=== PATIENT | female | born 1985 | race Hispanic/Latino ===

== ENCOUNTER 2017-02-07 10:38 | Emergency (ER) | payer OTHER ==
[2017-02-07 12:14] LABS: ALT (SGPT) 14 U/L (8-55); AST (SGOT) 16 U/L (5-34); Albumin 4.1 g/dL (3.5-5.0); Alkaline Phosphatase 94 U/L (40-150); Anion Gap 14 mmol/L (10-20); BUN (Urea Nitrogen) 11 mg/dL (7.0-18.7); Bilirubin, Total 0.2 mg/dL (0.2-1.2); Calc. Creatinine Clearance 0 mL/min (70-130); Calcium 9.3 mg/dL (7.8-10.44); Carbon Dioxide 22 mmol/L (22-29); Chloride 108 mmol/L (98-107); Estimated GFR-MDRD 89; Globulin 3.7 g/dL (2.4-3.5); Glucose 71 mg/dL (70-105); Potassium 4.1 mmol/L (3.5-5.1); Protein, Total 7.8 g/dL (6.0-8.3); Sodium 140 mmol/L (136-145)
[2017-02-07 12:15] LABS: CKMB 0.7 ng/mL (0-6.6); Troponin I Less than 0.010 ng/mL (< 0.028)
--- NOTE | 2017-02-07 12:19 | RAD ---
PORTABLE CHEST ONE VIEW: Date: 02-07-17 Time: 11:52 a.m. History: Nausea, vomiting. FINDINGS: The heart size is normal. No confluent areas of consolidation, pneumothorax, jo-ann pleural edema or p leural effusions are seen. IMPRESSION: No acute process. POS: OFF
[2017-02-07 12:25] LABS: Eosinophils 6 % (0-10); Hemoglobin 15.6 g/dL (12.0-16.0); Lymphocytes 26 % (21-51); MDiff Complete? YES; Mean Corpuscular HGB CONC 34.1 g/dL (32.0-36.0); Mean Corpuscular Hemoglobin 28.6 pg (27.0-31.0); Mean Corpuscular Volume 83.8 fl (81.0-99.0); Mean Platelet Volume 8.5 fL (7.4-10.4); Monocytes 4 % (0-10); Neutrophil 57 % (42-75); PLT Morphology Comment Appears Adequate; Platelet Count 279 thou/uL (130-400); RBC Distribution Width 12.3 % (11.5-14.5); RBC Morphology Normal; Reactive Lymphocytes 7 % (0-10); Red Blood Cell (RBC) Count 5.45 mill/uL (4.20-5.40); White Blood Cell (WBC) Count 8.9 thou/uL (4.8-10.8)
[2017-02-07] MEDS ORDERED: Famotidine/PF 20 mg/2ml Vial ONE (12:43)
[2017-02-07] MEDS ORDERED: Ondansetron HCl/PF 4 MG/2 ML Vial ONE (12:43)
== END 2017-02-07 13:13 | disposition home or self-care (01) ==
LOC: NAV ERS 10:38
DX: R10.9 Unspecified abdominal pain (principal); R11.2 Nausea with vomiting, unspecified; I10 Essential (primary) hypertension; F41.9 Anxiety disorder, unspecified
CPT/HCPCS: 71010; 80053; 82553; 84484; 85025; 93005; 96374; 96375; J2405; S0028

== ENCOUNTER 2017-02-16 00:53 | Emergency (ER) | payer OTHER | END 2017-02-16 01:35 | disposition home or self-care (01) | LOC: NAV ERS 00:53 | DX: F41.9 Anxiety disorder, unspecified (principal); I10 Essential (primary) hypertension | CPT/HCPCS: 93005 ==

== ENCOUNTER 2017-06-03 01:57 | Emergency (ER) | payer OTHER ==
[2017-06-03] MEDS ORDERED: diphenhydrAMINE 50 MG/ML VIAL ONE (02:27)
== END 2017-06-03 02:35 | disposition home or self-care (01) ==
LOC: NAV ERS 01:57
DX: F41.9 Anxiety disorder, unspecified (principal); I10 Essential (primary) hypertension
CPT/HCPCS: 96372; J1200

== ENCOUNTER 2021-09-26 11:08 | Emergency (ER) | payer OTHER ==
[2021-09-26] MEDS ORDERED: Lidocaine 1% 20 ML MDV ONE (11:37)
[2021-09-26] MEDS ORDERED: TETANUS, DIPHTHERIA TOX,ADULT (TDVAX) 0.5 ML VIAL IM ONE (11:37)
[2021-09-26] MEDS ORDERED: Bacitracin 1 PK ONE (12:06)
== END 2021-09-26 12:16 | disposition home or self-care (01) ==
LOC: NAV ERS 11:08
DX: S61.411A Laceration without foreign body of right hand, initial encounter (principal); I10 Essential (primary) hypertension; W25.XXXA Contact with sharp glass, initial encounter
CPT/HCPCS: 12002; 90471; 90714